=== PATIENT | male | born 1985 | race Caucasian/White ===

== ENCOUNTER → 2018-11-12 16:02 | Outpatient (CLI) | payer BC, SELFPAY ==
--- NOTE | 2018-11-12 16:11 | RAD_ITS ---
STUDY: X-RAY - RIGHT ANKLE REASON FOR EXAM: Male, 32 years old. Ankle injury TECHNIQUE: 3 view(s) of the ankle. COMPARISON: None. FINDINGS: There is no evidence of fracture or dislocation. There are no significant degenerative changes. There are no radiodense foreign bodies. RAD/Ankle min 3 Views IMPRESSION: No fracture or dislocation. Electronically Signed: Salty Myers, at 18:00 EDT Tel , Service support ,
== END ==
PROVIDERS: Family Provider Family Medicine; PCP Family Medicine; Referring Provider Family Medicine; Visit Provider Family Medicine
DX: S99.911S Unspecified injury of right ankle, sequela (principal)
CPT/HCPCS: 73610